=== PATIENT | female | born 1965 ===

== ENCOUNTER 2019-08-19 08:17 | Emergency (ER) | payer OTHER ==
[~2019-08-19] VITALS: Ht 157.5 cm; Wt 86.2 kg
[2019-08-19] MEDS ORDERED: COZAAR100 MG (08:37)
== END 2019-08-19 11:14 | disposition home or self-care (01) ==
LOC: ER 08:17
DX: G44.209 Tension-type headache, unspecified, not intractable (principal); M50.30 Other cervical disc degeneration, unspecified cervical region

== ENCOUNTER 2019-08-26 09:05 | Outpatient (CLI) | payer OTHER ==
[~2019-08-26 09:05] MED LIST: COZAAR100 MG
== END 2019-08-26 09:06 | disposition home or self-care (01) ==
LOC: MRI 09:05
PROVIDERS: ATTEND General Practice
DX: R57.8 Other shock (principal); M50.90 Cervical disc disorder, unspecified, unspecified cervical region
CPT/HCPCS: 72141

== ENCOUNTER 2019-08-29 07:03 | Day surgery (SDC) | payer OTHER | END 2019-08-29 11:05 | disposition home or self-care (01) | LOC: AMB-ENDOS 07:03 | PROVIDERS: ATTEND Surgery | DX: D12.8 Benign neoplasm of rectum (principal); Z12.11 Encounter for screening for malignant neoplasm of colon ==